=== PATIENT | male | born 1990 | race Caucasian/White ===

== ENCOUNTER 2017-03-02 12:35 | Emergency (ER) | payer OTHER ==
[~2017-03-02] VITALS: Ht 185.4 cm; Wt 75.0 kg
[2017-03-02 12:38] VITALS: BP 159/98; TEMP 98.5
[2017-03-02] MEDS ORDERED: DOXYCYCLINE 10100 MG PO (12:40)
[2017-03-02] MEDS ORDERED: NORCO 325 MG-7.1 TAB PO (15:45)
[2017-03-02 15:56] VITALS: PULSE 99
== END 2017-03-02 15:57 | disposition home or self-care (01) ==
LOC: COL.ER 12:35
DX: S51.852D Open bite of left forearm, subsequent encounter (principal); L08.9 Local infection of the skin and subcutaneous tissue, unspecified; W64.XXXD Exposure to other animate mechanical forces, subsequent encounter

== ENCOUNTER 2017-03-04 09:28 | Emergency (ER) | payer OTHER ==
[~2017-03-04] VITALS: Ht 185.4 cm; Wt 75.0 kg
[~2017-03-04 09:28] MED LIST: DOXYCYCLINE 10100 MG PO; NORCO 325 MG-7.1 TAB PO
[2017-03-04 09:30] VITALS: BP 147/89; PULSE 81
[2017-03-04 10:23] LABS: BASO % 0.8 % (0.0-2.0); EOS # 0.1 (0.0-0.7); EOS % 1.3 % (0-4.0); GRAN # 2.8 (1.4-6.5); GRAN % 57.7 % (42.2-75.2); HEMATOCRIT 45.2 % (42.0-52.0); HEMOGLOBIN 15.2 g/dl (13.5-18.0); LYMPH # 1.6 (1.2-3.4); LYMPH % 32.6 % (20.0-51.0); MEAN CELL VOLUME 92 fl (80.0-100.0); MEAN CORPUSCULAR HEMOGLOBIN 31 pg (27.0-31.0); MEAN CORPUSCULAR HGB CONC 34 g/dl (33.0-37.0); MEAN PLATELET VOLUME 9.5 fl (7.4-10.4); MONO # 0.4 (0.1-0.6); MONO % 7.4 % (1.7-9.3); PLATELET COUNT 325 K/mm3 (130-400); RED BLOOD COUNT 4.93 M/mm3 (4.20-5.60); REDCELL DISTRIBUTION WIDTH-CV 12.1 % (11.5-14.5); WHITE BLOOD COUNT 4.8 K/mm3 (4.8-10.8)
[2017-03-04 10:32] LABS: ADJUSTED CALCIUM 9.6 mg/dL (8.4-10.2); ALBUMIN 4.8 gm/dL (3.5-5.0); BILIRUBIN,TOTAL 0.6 mg/dL (0.0-1.0); CALCIUM 10.2 mg/dL (8.4-10.2); CREATININE, serum 0.9 mg/dL (0.66-1.25); POTASSIUM 4.3 mmol/L (3.4-5.0); TOTAL PROTEIN 7.4 gm/dL (6.4-8.2)
[2017-03-04] MEDS ORDERED: NAPROSYN 2250 MG/TAB PO (10:39)
[2017-03-04] MEDS ORDERED: MEDROL 4MG DOSPA4 MG PO (10:39)
[2017-03-04 11:05] VITALS: TEMP 98.2
[2017-03-04 11:11] LABS: URIC ACID 5.3 mg/dL (3.5-8.5)
== END 2017-03-04 11:05 | disposition home or self-care (01) ==
LOC: COL.ER 09:28
PROVIDERS: Nurse Practitioner
DX: M79.675 Pain in left toe(s) (principal); M79.674 Pain in right toe(s)
CPT/HCPCS: J1885

== ENCOUNTER 2017-03-09 11:18 | Emergency (ER) | payer OTHER ==
[~2017-03-09] VITALS: Ht 185.4 cm; Wt 75.0 kg
[~2017-03-09 11:18] MED LIST changes: +MEDROL 4MG DOSPA4 MG PO; +NAPROSYN 2250 MG/TAB PO
[2017-03-09 11:20] VITALS: TEMP 97.9
[2017-03-09] MEDS ORDERED: AMOXICILLIN 8751 TAB PO (11:23)
[2017-03-09 12:19] LABS: ADJUSTED CALCIUM 9.7 mg/dL (8.4-10.2); ALANINE AMINOTRANSFERASE 50 U/L (21-72); ALBUMIN 4.8 gm/dL (3.5-5.0); ALKALINE PHOSPHATASE 46 U/L (50-136); ANION GAP 13 mmol/L (7-16); BILIRUBIN,TOTAL 0.6 mg/dL (0.0-1.0); BLOOD UREA NITROGEN 10 mg/dL (9-20); CALCIUM 10.3 mg/dL (8.4-10.2); CARBON DIOXIDE 27 mmol/L (22-30); CHLORIDE 103 mmol/L (98-107); CREATININE, serum 0.84 mg/dL (0.66-1.25); GLUCOSE 93 mg/dL (74-106); POTASSIUM 3.7 mmol/L (3.4-5.0); SODIUM 142 mmol/L (137-145); TOTAL PROTEIN 7.6 gm/dL (6.4-8.2)
[2017-03-09 12:20] LABS: C-REACTIVE PROTEIN < 0.5 mg/dL (0.0-0.9)
[2017-03-09 12:30] LABS: BASO % 0.5 % (0.0-2.0); EOS # 0.1 (0.0-0.7); EOS % 1.6 % (0-4.0); GRAN # 5.2 (1.4-6.5); GRAN % 68.6 % (42.2-75.2); HEMATOCRIT 43.8 % (42.0-52.0); HEMOGLOBIN 14.7 g/dl (13.5-18.0); LYMPH # 1.7 (1.2-3.4); LYMPH % 22.6 % (20.0-51.0); MEAN CELL VOLUME 92 fl (80.0-100.0); MEAN CORPUSCULAR HEMOGLOBIN 31 pg (27.0-31.0); MEAN CORPUSCULAR HGB CONC 34 g/dl (33.0-37.0); MEAN PLATELET VOLUME 9.5 fl (7.4-10.4); MONO # 0.5 (0.1-0.6); MONO % 6.3 % (1.7-9.3); PLATELET COUNT 338 K/mm3 (130-400); RED BLOOD COUNT 4.74 M/mm3 (4.20-5.60); REDCELL DISTRIBUTION WIDTH-CV 12.1 % (11.5-14.5); WHITE BLOOD COUNT 7.6 K/mm3 (4.8-10.8)
[2017-03-09] MEDS ORDERED: NORCO 325 MG-51 TAB PO (12:47)
[2017-03-09 13:04] VITALS: BP 143/83; PULSE 95
== END 2017-03-09 13:06 | disposition home or self-care (01) ==
LOC: COL.ER 11:18
PROVIDERS: Family Medicine
DX: L03.114 Cellulitis of left upper limb (principal); S51.852D Open bite of left forearm, subsequent encounter; W64.XXXD Exposure to other animate mechanical forces, subsequent encounter
CPT/HCPCS: J1885; J2405; J7030

== ENCOUNTER 2018-04-20 18:26 | Emergency (ER) | payer OTHER ==
[~2018-04-20] VITALS: Ht 185.4 cm; Wt 65.9 kg
[~2018-04-20 18:26] MED LIST changes: +AMOXICILLIN 8751 TAB PO; +NORCO 325 MG-51 TAB PO
[2018-04-20 18:31] VITALS: TEMP 98.5
[2018-04-20] MEDS ORDERED: NEURONTIN100 MG/CAP PO (18:42)
[2018-04-20] MEDS ORDERED: TYLENOL 325MG325 MG PO (18:43)
[2018-04-20] MEDS ORDERED: MOTRIN 800800 MG/TAB PO (18:43)
[2018-04-20 20:03] VITALS: BP 107/70; PULSE 116
== END 2018-04-20 20:05 | disposition home or self-care (01) ==
LOC: COL.ER 18:26
DX: M54.5 Low back pain (principal); F17.220 Nicotine dependence, chewing tobacco, uncomplicated; Z87.39 Personal history of other diseases of the musculoskeletal system and connective tissue

== ENCOUNTER 2018-04-21 16:32 | Emergency (ER) | payer OTHER ==
[~2018-04-21] VITALS: Ht 185.4 cm; Wt 65.9 kg
[~2018-04-21 16:32] MED LIST changes: +MOTRIN 800800 MG/TAB PO; +NEURONTIN100 MG/CAP PO; +TYLENOL 325MG325 MG PO
[2018-04-21 16:41] VITALS: BP 150/85; PULSE 127; TEMP 98.3
== END 2018-04-21 17:38 | disposition home or self-care (01) ==
LOC: COL.ER 16:32
DX: M54.5 Low back pain (principal)

== ENCOUNTER 2018-05-19 14:26 | Emergency (ER) | payer OTHER ==
[~2018-05-19] VITALS: Ht 185.4 cm; Wt 70.5 kg
[2018-05-19 14:29] VITALS: BP 171/88; PULSE 98; TEMP 99
[2018-05-19] MEDS ORDERED: NORCO 325 MG-51 TAB PO (14:32)
[2018-05-19] MEDS ORDERED: CLEOCIN HC150 MG/CAP PO (14:32)
[2018-05-19] MEDS ORDERED: TYLENOL W/COD1 UDTAB PO (14:32)
[2018-05-19] MEDS ORDERED: NORCO 325 MG-7.1 TAB PO (17:01)
== END 2018-05-19 17:20 | disposition home or self-care (01) ==
LOC: COL.ER 14:26
DX: K08.89 Other specified disorders of teeth and supporting structures (principal); F17.220 Nicotine dependence, chewing tobacco, uncomplicated

== ENCOUNTER 2018-06-02 09:57 | Emergency (ER) | payer OTHER ==
[~2018-06-02] VITALS: Ht 185.4 cm; Wt 70.5 kg
[~2018-06-02 09:57] MED LIST changes: +CLEOCIN HC150 MG/CAP PO; +TYLENOL W/COD1 UDTAB PO
[2018-06-02 10:32] LABS: BASO # 0.1 (0.0-0.2); BASO % 0.5 % (0.0-2.0); EOS # 0.1 (0.0-0.7); EOS % 0.6 % (0-4.0); GRAN # 7.6 (1.4-6.5); GRAN % 76.7 % (42.2-75.2); HEMATOCRIT 42.7 % (42.0-52.0); LYMPH # 1.4 (1.2-3.4); LYMPH % 14.1 % (20.0-51.0); MEAN CELL VOLUME 88 fl (80.0-100.0); MEAN CORPUSCULAR HEMOGLOBIN 31 pg (27.0-31.0); MEAN CORPUSCULAR HGB CONC 35 g/dl (33.0-37.0); MEAN PLATELET VOLUME 9.8 fl (7.4-10.4); MONO # 0.8 (0.1-0.6); MONO % 7.9 % (1.7-9.3); PLATELET COUNT 347 K/mm3 (130-400); RED BLOOD COUNT 4.88 M/mm3 (4.20-5.60); REDCELL DISTRIBUTION WIDTH-CV 11.9 % (11.5-14.5)
[2018-06-02 10:43] LABS: ALBUMIN 4.7 gm/dL (3.5-5.0); BILIRUBIN,TOTAL 1.3 mg/dL (0.0-1.0); CALCIUM 9.7 mg/dL (8.4-10.2); CREATININE, serum 1.04 mg/dL (0.66-1.25); MAGNESIUM 1.8 mg/dL (1.6-2.3); PHOSPHOROUS 1.1 mg/dL (2.5-4.5); POTASSIUM 3.5 mmol/L (3.4-5.0); TOTAL PROTEIN 7.5 gm/dL (6.4-8.2)
[2018-06-02 12:09] LABS: COLLECTION METHOD CLEAN CATCH
[2018-06-02 12:17] LABS: MUCOUS Present /lpf; PH 6 (5-8); SQUAMOUS EPITHELIAL 0-2 /hpf; URINE APPEARANCE Clear; URINE BACTERIA None Seen /hpf; URINE BILIRUBIN Negative (NEGATIVE); URINE BLOOD Negative (NEGATIVE); URINE COLOR Yellow; URINE GLUCOSE Negative (NEGATIVE); URINE KETONE Negative (NEGATIVE); URINE LEUKOCYTE ESTERASE Negative (NEGATIVE); URINE NITRATE Negative (NEGATIVE); URINE PROTEIN(semi-quant) Negative (NEGATIVE); URINE RBC 0-2 /hpf; URINE UROBILINOGEN Negative (NEGATIVE)
[2018-06-02] MEDS ORDERED: PHENERGAN 25 TA25 MG PO (12:26)
[2018-06-02 13:18] VITALS: BP 128/71; PULSE 89; TEMP 98.5
== END 2018-06-02 13:17 | disposition home or self-care (01) ==
LOC: COL.ER 09:57
PROVIDERS: Emergency Medicine
DX: E86.9 Volume depletion, unspecified (principal); L55.0 Sunburn of first degree; F17.210 Nicotine dependence, cigarettes, uncomplicated; Z98.890 Other specified postprocedural states; X30.XXXA Exposure to excessive natural heat, initial encounter
CPT/HCPCS: J2405; J2550; J7030

== ENCOUNTER 2018-06-09 16:08 | Emergency (ER) | payer OTHER ==
[~2018-06-09] VITALS: Ht 185.4 cm; Wt 63.6 kg
[~2018-06-09 16:08] MED LIST changes: +PHENERGAN 25 TA25 MG PO
[2018-06-09 16:10] VITALS: BP 148/91; PULSE 116; TEMP 99.2
== END 2018-06-09 17:04 | disposition home or self-care (01) ==
LOC: COL.ER 16:08
DX: S31.113A Laceration without foreign body of abdominal wall, right lower quadrant without penetration into peritoneal cavity, initial encounter (principal); X58.XXXA Exposure to other specified factors, initial encounter

== ENCOUNTER 2018-07-12 11:41 | Emergency (ER) | payer OTHER ==
[~2018-07-12] VITALS: Ht 185.4 cm; Wt 70.5 kg
[2018-07-12 11:50] VITALS: BP 138/71; TEMP 99
[2018-07-12] MEDS ORDERED: NORCO 325 MG-51 TAB PO (12:22)
[2018-07-12 12:36] VITALS: PULSE 90
== END 2018-07-12 12:37 | disposition home or self-care (01) ==
LOC: COL.ER 11:41
DX: K08.89 Other specified disorders of teeth and supporting structures (principal); F17.290 Nicotine dependence, other tobacco product, uncomplicated

== ENCOUNTER 2018-07-14 16:59 | Emergency (ER) | payer OTHER ==
[~2018-07-14] VITALS: Ht 185.4 cm; Wt 70.5 kg
[2018-07-14 17:01] VITALS: BP 134/75; TEMP 98.8
[2018-07-14] MEDS ORDERED: NORCO 325 MG-51 TAB PO (17:57)
[2018-07-14 17:59] VITALS: PULSE 86
== END 2018-07-14 18:04 | disposition home or self-care (01) ==
LOC: COL.ER 16:59
DX: K08.89 Other specified disorders of teeth and supporting structures (principal); F17.210 Nicotine dependence, cigarettes, uncomplicated

== ENCOUNTER 2018-07-20 12:50 | Emergency (ER) | payer OTHER ==
[~2018-07-20] VITALS: Ht 185.4 cm; Wt 70.5 kg
[2018-07-20 12:52] VITALS: BP 150/93; PULSE 112; TEMP 99.1
== END 2018-07-20 14:00 | disposition home or self-care (01) ==
LOC: COL.ER 12:50
DX: K08.89 Other specified disorders of teeth and supporting structures (principal); Z87.891 Personal history of nicotine dependence

== ENCOUNTER 2018-08-09 16:48 | Emergency (ER) | payer OTHER ==
[~2018-08-09] VITALS: Ht 185.4 cm; Wt 61.3 kg
[2018-08-09 17:06] VITALS: BP 150/90; PULSE 102; TEMP 98.8
== END 2018-08-09 17:40 | disposition home or self-care (01) ==
LOC: COL.ER 16:48
DX: S41.002A Unspecified open wound of left shoulder, initial encounter (principal); Y04.0XXA Assault by unarmed brawl or fight, initial encounter

== ENCOUNTER 2019-02-19 13:06 | Emergency (ER) | payer OTHER ==
[~2019-02-19] VITALS: Ht 185.4 cm; Wt 70.5 kg
[2019-02-19 13:11] VITALS: TEMP 99.6
[2019-02-19] MEDS ORDERED: KLONOPIN 1MG1 MG PO (13:21)
[2019-02-19] MEDS ORDERED: WELLBUTRIN SR150 M1 PO (13:22)
[2019-02-19] MEDS ORDERED: MIRTAZAPINE7.5 MG PO (13:22)
[2019-02-19] MEDS ORDERED: NORCO 325 MG-51 TAB PO (14:36)
[2019-02-19 15:05] VITALS: BP 126/72; PULSE 88
== END 2019-02-19 15:05 | disposition home or self-care (01) ==
LOC: COL.ER 13:06
DX: R68.84 Jaw pain (principal); F17.210 Nicotine dependence, cigarettes, uncomplicated

== ENCOUNTER 2019-11-09 10:51 | Emergency (ER) | payer OTHER ==
[~2019-11-09] VITALS: Ht 185.4 cm; Wt 68.2 kg
[~2019-11-09 10:51] MED LIST changes: +KLONOPIN 1MG1 MG PO; +MIRTAZAPINE7.5 MG PO; +WELLBUTRIN SR150 M1 PO
[2019-11-09 11:30] VITALS: BP 153/95; TEMP 99
[2019-11-09 15:40] VITALS: PULSE 97
== END 2019-11-09 15:40 | disposition home or self-care (01) ==
LOC: COL.ER 10:51
DX: S02.5XXA Fracture of tooth (traumatic), initial encounter for closed fracture (principal); K08.89 Other specified disorders of teeth and supporting structures; F41.9 Anxiety disorder, unspecified; F17.290 Nicotine dependence, other tobacco product, uncomplicated; X58.XXXA Exposure to other specified factors, initial encounter
CPT/HCPCS: J1885